=== PATIENT | female | born 1975 | race Caucasian/White ===

== ENCOUNTER 2021-02-15 00:24 | Emergency (ER) | payer OTHER, SELFPAY ==
[2021-02-15 00:28] VITALS: BP 134/85; PULSE 95; RESP 16; TEMP 36.9; O2SAT 97; BMI 22.6
[2021-02-15 00:35] VITALS: BP 150/91; PULSE 85; RESP 16; O2SAT 97
--- NOTE | 2021-02-15 00:41 | XRR_ITS ---
PROCEDURE INFORMATION: Exam: XR Left Knee Exam date and time: 02/15/2021 12:45 AM Age: 45 years old Clinical indication: Injury or trauma; Fall; Blunt trauma; Knee; Left; Additional info: Fall, pain TECHNIQUE: Imaging protocol: XR Left knee. Views: 3 views. COMPARISON: No relevant prior studies available. FINDINGS: Bones/joints: Normal. Soft tissues: Normal. XR/XR knee LT 3V* [id number] IMPRESSION: No acute findings.
--- NOTE | 2021-02-15 00:41 | XRR_ITS ---
PROCEDURE INFORMATION: Exam: XR Right Hand Exam date and time: 02/15/2021 12:45 AM Age: 45 years old Clinical indication: Injury or trauma; Fall; Blunt trauma (contusions or hematomas); Hand; Right; Additional info: Thumb pain TECHNIQUE: Imaging protocol: XR Right hand. Views: 3 or more views. COMPARISON: No relevant prior studies available. FINDINGS: Bones/joints: Normal. Soft tissues: Normal. XR/XR hand RT min 3V* [id number] IMPRESSION: No acute findings.
--- NOTE | 2021-02-15 00:41 | XRR_ITS ---
PROCEDURE INFORMATION: Exam: XR Left Hand Exam date and time: 02/15/2021 12:45 AM Age: 45 years old Clinical indication: Injury or trauma; Fall; Blunt trauma (contusions or hematomas); Finger; Left; Thumb; Additional info: Swelling pain to thumb TECHNIQUE: Imaging protocol: XR Left hand. Views: 3 or more views. COMPARISON: No relevant prior studies available. FINDINGS: Bones/joints: Normal. Soft tissues: Normal. XR/XR hand LT min 3V* [id number] IMPRESSION: No acute findings.
--- NOTE | 2021-02-15 00:43 | W.ED.FALL ---
HPI - Fall General: Chief Complaint: Fall Stated Complaint: fell Time Seen by Provider: 02/15/21 00:38 History of Present Illness: HPI Narrative: Patient states she was carrying a bucket to pull far out at home night and she tripped and fell when her left knee gave out on her. She complains about left knee pain and bilateral thumb pain and has abrasions to the left hand and arm. complaint: fall Onset (ago): minute(s) Fall from: standing Fall witnessed: yes, by family Place fall occurred: home Loss of consciousness: None Prolonged down time: no Symptoms prior to fall: none Context: tripped/slipped Location of injury - extremities: Left: knee and Bilateral: hand Severity: mild Severity scale (1-10): 2 Quality: aching Associated symptoms-after fall: Reports no associated symptoms; Denies abdominal pain, chest pain or headache(s) Review of Systems Const: Denies: fever(s), chills or body aches Eyes: Denies: change in vision or blurry vision ENMT: Denies: throat pain or nasal congestion Card: Denies: chest pain or dyspnea on exertion Resp: Denies: dyspnea, productive cough or non-productive cough GI: Denies: abdominal pain, nausea or vomiting Musc: Reports: extremity pain (Left forearm has laceration/abrasion.) and joint pain (Both thumbs and left knee) Skin/Breast: Denies: rash Neuro: Denies: headache(s) Psych: Denies: anxiety or depression Luis/Lymph: Denies: easy bruising Physical Exam Const: COMMON NORMALS: no acute distress, average body habitus and patient oriented x3 HENMT: COMMON NORMALS: normocephalic HEAD & SCALP: normal to inspection and normocephalic FACE & SINUS: normal facial exam Eye: COMMON NORMALS: conjunctivae normal GENERAL EYE: appearance normal, both eyes and all related structures CONJUNCTIVA: Yes conjunctivae normal Neck/C-Spine: COMMON NORMALS: no JVD Chest: COMMONS NORMALS: normal inspection of the chest Resp: COMMON NORMALS: normal respiratory effort and clear to auscultation bilaterally AUSCULTATION: clear to auscultation bilaterally Cardio: COMMON NORMALS: no JVD, regular rate and regular rhythm RATE: regular rate RHYTHM: regular rhythm GI: COMMON NORMALS: Normal to inspection, nondistended, normoactive bowel sounds present Extremity: COMMON NORMALS: normal to inspection and full ROM RIGHT UPPER EXTREMITY: Yes hand & digits (Her at base mild to no swelling.) LEFT UPPER EXTREMITY: Yes hand & digits (Left thumb is swelled decreased range of motion tender to touch base.) LEFT LOWER EXTREMITY: Yes knee joint (Pain with palpation posteriorly no swelling bruising noted, decreased range) Neuro: COMMON NORMALS: patient oriented x3 Skin: OTHER: Abrasion left forearm and abrasion base left thumb. Course Vital Signs: Vital signs: Vital Signs Temperature 98.5 F 02/15/21 00:28 Pulse Rate 88 02/15/21 01:15 Respiratory Rate 16 02/15/21 01:15 Blood Pressure 144/93 02/15/21 01:15 Pulse Oximetry 98 02/15/21 01:15 Discharge Plan Discharge Patient Disposition: Home Clinical Impression: Abrasion Left knee sprain Qualifiers: Encounter type: initial encounter Involved ligament of knee: unspecified ligament Qualified Code(s): S83.92XA - Sprain of unspecified site of left knee, initial encounter Fall Qualifiers: Encounter type: initial encounter Qualified Code(s): W19.XXXA - Unspecified fall, initial encounter Left thumb sprain Qualifiers: Encounter type: initial encounter Sprain of finger site: metacarpophalangeal joint Qualified Code(s): S63.642A - Sprain of metacarpophalangeal joint of left thumb, initial encounter Sprain of hand, thumb, right Qualifiers: Encounter type: initial encounter Sprain of finger site: metacarpophalangeal joint Qualified Code(s): S63.641A - Sprain of metacarpophalangeal joint of right thumb, initial encounter Condition: Stable Prescriptions: New ibuprofen 600 mg tablet 600 mg PO TID PRN (Reason: pain) Qty: 14 RF: 0 Discharge Orders: Discharge ED (Routine); Ordered 02/15/21 Ordered By: Dayday Mejia Discharge Diet: Usual diet Patient Instructions: Knee Sprain (ED), Finger Sprain (ED), Abrasion (ED) Activity Restrictions/Additional Instructions: Follow-up with medical provider as directed. Take medications as prescribed. Return to the ER or your medical provider if condition worsens. Please read and understand discharge instructions. If any questions ask please. Apply ice areas that are tender. Watch for signs of infection. Coding Level of Care Code ED Automatic Thread Winder for Mukesh Fwnirali Exam Comprehensive
[2021-02-15] MEDS: ibuprofen 600 mg Tablet PO (00:55)
[2021-02-15] MEDS: tetanus-dipt-pertussis 0.5 mL SDV IM (00:56)
[2021-02-15 01:05] VITALS: BP 150/91; PULSE 92; RESP 16; O2SAT 98
[2021-02-15 01:15] VITALS: BP 144/93; PULSE 88; RESP 16; O2SAT 98
== END 2021-02-15 01:19 | disposition home or self-care (01) ==
PROVIDERS: Emergency Provider Nurse Practitioner Family
DX: S83.92XA Sprain of unspecified site of left knee, initial encounter (principal); S63.642A Sprain of metacarpophalangeal joint of left thumb, initial encounter; S63.641A Sprain of metacarpophalangeal joint of right thumb, initial encounter; S50.812A Abrasion of left forearm, initial encounter; S60.312A Abrasion of left thumb, initial encounter; W01.0XXA Fall on same level from slipping, tripping and stumbling without subsequent striking against object, initial encounter; Z23 Encounter for immunization
CPT/HCPCS: 73130; 73562; 90471; 90715; 99283; A6446

== ENCOUNTER 2021-03-13 10:50 | Outpatient (CLI) | payer OTHER, SELFPAY ==
--- NOTE | 2021-03-13 10:56 | MR_ITS ---
WS: [id number] MRI LEFT KNEE HISTORY: SPRAIN OF MCL COMPARISON: None available. Anterior cruciate ligament: Intact. Posterior cruciate ligament: Intact. Medial collateral ligament: Fluid signal on both sides of the MCL but there is no MCL tear. Posterior lateral corner structures: Intact. Medial menisci: Horizontal tear in the posterior meniscus extends to the inferior articular surface. There is an associated lobulated cystic mass extending posterior from the joint which is contiguous w ith the meniscus. Lobulated cystic mass measures 3.5 cm transversely by 2.1 cm anterior posterior and extends posterior to the PCL. Lateral meniscus: Intact. Normal signal, size and shape. Extensor mechanism: Distal quadriceps tendon and patellar tendons are intact. Fluid and soft tissue: No joint effusion. No Avina's cyst. Osseous and articular structures: Patellofemoral compartment: Normal. Medial compartment: Very mild narrowing of the medial compartment minimal thinning of the cartilage. No marrow edema. Lateral compartment: No significant joint space narrowing. Seen best on the coronal T2 fat saturated images is a 5.2 mm loose body within the joint space towards the intercondylar notch. This may be a s mall bone fragment as this follows bone signal on all sequences. May be avulsion from the tibial spin e. MR/MR knee LT wo con* [id number] IMPRESSION: 1. Horizontal tear posterior horn medial meniscus. 2. Very large lobulated septated meniscal cyst extends posterior from the medi al joint space. Meniscal cyst measures at least 3.5 x 2.1 cm. 3. Additional 5.2 mm possible loose body or bone fragment in the lateral qi rtment near the intercondylar notch. Possible avulsion fracture from the latera l tibial spine.
== END 2021-03-13 10:51 | disposition home or self-care (01) ==
LOC: RADWPI 10:53
PROVIDERS: Visit Provider Registered Nurse
DX: S83.412A Sprain of medial collateral ligament of left knee, initial encounter (principal); S83.242A Other tear of medial meniscus, current injury, left knee, initial encounter; X58.XXXA Exposure to other specified factors, initial encounter; M23.022 Cystic meniscus, posterior horn of medial meniscus, left knee
CPT/HCPCS: 73721

== ENCOUNTER → 2021-04-01 11:39 | Outpatient (BNVA) | payer OTHER, SELFPAY | PROVIDERS: PCP Registered Nurse; Referring Provider Registered Nurse; Visit Provider Specialist | DX: M25.562 Pain in left knee (principal) | CPT/HCPCS: 73560; 73565 ==

== ENCOUNTER 2021-05-11 11:42 | Outpatient (CLI) | payer OTHER, SELFPAY ==
--- NOTE | 2021-05-11 12:53 | MR_ITS ---
WS: [id number] MRI LEFT KNEE ARTHROGRAM TECHNIQUE: Axial PD, coronal PD fat sat, coronal PD, sagittal PD, and sagittal PD fat-sat images obta ined. Post arthrogram images were obtained. CLINICAL INFORMATION: M25.569 - Pain in unspecified knee COMPARISON: MRI March 13, 2021 FINDINGS: Distal quadriceps and patella tendons are intact. Normal patella. Normal ACL and PCL. Normal medial a nd lateral collateral ligaments. Horizontal tear involving the posterior horn medial meniscus extendi ng to the articular surface with associated peripheral lobulated parameniscal cyst. Cyst is slightly smaller compared to previous today measuring 3.1 x 1.6 cm. Lateral meniscus is normal in appearance. Normal bone marrow signal in the femoral condyles and tibial plateau. Mild chondromalacia in the medi al and lateral joint compartments. Normal medial and lateral collateral ligaments. Mild chondromalaci a patella. No subchondral edema. Normal medial and lateral patellar retinaculum. MR/MR knee LT wo/w con [id number] IMPRESSION: 1. Horizontal tear involving the posterior horn medial meniscus extending to t he articular surface is similar in appearance compared to previous. 2. Lobulated appearing meniscal cyst slightly smaller today measuring 3.1 x 1. 6 cm. This does not fill with contrast. 3. Normal ACL and PCL. 4. Mild chondromalacia patella. 5. Medial and lateral collateral ligaments are normal in appearance. Outbridge grading: grade II: blister-like swelling/fraying of articular cartila ge extending to surface
--- NOTE | 2021-05-11 12:53 | IR_ITS ---
WS: [id number] Left knee arthrogram for MR arthrogram, 05/11/2021 Clinical Data: M25.569 - Pain in unspecified knee Comparison: Left knee, 04/01/2021. Fluoroscopy time: 0.3 minutes Findings: With the usual technique the left knee was prepped and draped. Approximately 5 mL of 1% lidocaine wer e injected via a 30-gauge needle into the medial aspect of the left knee. Then a one and a half inch 22-gauge needle was used to penetrate the left knee joint and identify the joint space with 2 mL of O mnipaque contrast. Then a mixture of saline and gadolinium, 20 mL was injected to fill entire knee lory int. There were no complications. IR/[place] [id number] Impression: Injection of gadolinium and saline in the left knee joint for MR arthrogram.
[2021-05-11] MEDS: iohexol 240 mg/mL 50 mL Btl INTRA-ARTI (14:26)
== END 2021-05-11 11:43 | disposition home or self-care (01) ==
PROVIDERS: PCP Family Medicine; Visit Provider Specialist
DX: M25.562 Pain in left knee (principal); M22.42 Chondromalacia patellae, left knee; S83.242A Other tear of medial meniscus, current injury, left knee, initial encounter; X58.XXXA Exposure to other specified factors, initial encounter
CPT/HCPCS: 27369; 73723; 77002; Q9966

== ENCOUNTER → 2024-04-19 15:25 | Outpatient (CLI) | payer OTHER, SELFPAY ==
--- NOTE | 2024-04-19 15:36 | MM_ITS ---
WS: [id number] BILATERAL 3D TOMOSYNTHESIS DIGITAL SCREENING MAMMOGRAM WITH CAD CLINICAL INFORMATION: SCREEN HISTORY: Screening mammogram. No current complaints. COMPARISON: 2009 TECHNIQUE: Bilateral CC and MLO. FINDINGS: The breast are composed of extremely dense tissue, which can limit the detection of small underlying mass lesions. A few incidental punctate calcifications LEFT breast. Partially obscured ovoid nodule anterior subareolar RIGHT breast measuring approximately 9 mm appears new from previous. This is best seen on the cc view just lateral to the nipple. Recommend RIGHT justin st diagnostic mammography and ultrasound in further evaluation. Heterogeneous dense parenchymal tissue LEFT breast similar in appearance to the prior study. MM/[place] [id number] IMPRESSION: BI-RADS: 0-Incomplete: Need additional imaging evaluation FOLLOW UP: Need Additional Imaging Recommend RIGHT breast diagnostic mammography and ultrasound. In addition, indeterminate hypoechoic nodule described on the 2010 ultrasound L EFT breast at the 11 to 12 o'clock position. Biopsy was recommended at that paris e and does not appear to have been performed. Recommend LEFT breast ultrasound to evaluate stability.
== END | disposition home or self-care (01) ==
LOC: RAD 15:25
PROVIDERS: PCP Family Medicine; Visit Provider Nurse Practitioner Family
DX: Z12.31 Encounter for screening mammogram for malignant neoplasm of breast (principal); R92.343 Mammographic extreme density, bilateral breasts; R92.1 Mammographic calcification found on diagnostic imaging of breast; N63.10 Unspecified lump in the right breast, unspecified quadrant; R92.322 Mammographic fibroglandular density, left breast
CPT/HCPCS: 77063; 77067

== ENCOUNTER 2024-06-21 14:45 | Outpatient (CLI) | payer OTHER, SELFPAY ==
--- NOTE | 2024-06-21 14:48 | MM_ITS ---
WS: [id number] RIGHT 3D TOMOSYNTHESIS DIGITAL MAMMOGRAPHY WITH CAD CLINICAL INFORMATION: INCONCLUSIVE MAMMOGRAM HISTORY: RIGHT breast nodule COMPARISON: 04/19/2024 TECHNIQUE: 3 views of the right breast were obtained. FINDINGS: The right breast is composed of heterogeneous fibroglandular density tissue, which can limit the dete ction of small underlying mass lesions. Subareolar nodule RIGHT breast persist on the spot compressio n views. Ultrasound is pending. ULTRASOUND BREAST BILATERAL TECHNIQUE: Ultrasound bilateral breast focused area of concern. CLINICAL INFORMATION: INCONCLUSIVE MAMMOGRAM COMPARISON: Ultrasound 2009 FINDINGS: RIGHT BREAST: Ultrasound subareolar RIGHT breast demonstrates ductal ectasia in the area of nodulari ty. No suspicious subareolar lesions. LEFT BREAST: Ultrasound LEFT breast at the 12 o'clock position. 7 x 3 x 6 mm solid hypoechoic ovoid n odule appears unchanged since 2009. MM/MM diag RT tomosynthesis [id number] IMPRESSION: DENSITY: The breasts are heterogeneously dense, which may obscure small masses. BI-RADS: 2 - Benign FOLLOW UP: 1 Year Follow-up Recommend return to annual screening mammography.
== END 2024-06-21 14:46 | disposition home or self-care (01) ==
LOC: RAD 14:45
PROVIDERS: PCP Family Medicine; Visit Provider Nurse Practitioner Family
DX: N63.22 Unspecified lump in the left breast, upper inner quadrant (principal); R92.2 Inconclusive mammogram; R92.333 Mammographic heterogeneous density, bilateral breasts; R92.8 Other abnormal and inconclusive findings on diagnostic imaging of breast
CPT/HCPCS: 76642; 77061; G0279

== ENCOUNTER → 2024-07-31 13:44 | Outpatient (BNVA) | payer OTHER, SELFPAY | PROVIDERS: PCP Family Medicine; Visit Provider Podiatrist Foot & Ankle Surgery | DX: M25.572 Pain in left ankle and joints of left foot (principal); M25.571 Pain in right ankle and joints of right foot; S82.54XA Nondisplaced fracture of medial malleolus of right tibia, initial encounter for closed fracture; W54.1XXA Struck by dog, initial encounter | CPT/HCPCS: 73610 ==